=== PATIENT | female | born 1990 | race Caucasian/White ===

== ENCOUNTER → 2020-12-23 14:15 | Outpatient (BNVA) | payer MEDICAID, SELFPAY | PROVIDERS: Visit Provider Nurse Practitioner Women's Health | DX: N89.8 Other specified noninflammatory disorders of vagina (principal); F41.0 Panic disorder [episodic paroxysmal anxiety] | CPT/HCPCS: 87070; 87205; 87491; 87591; 87661 ==

== ENCOUNTER → 2021-02-01 14:31 | Outpatient (BNVA) | payer MEDICAID, SELFPAY | PROVIDERS: Visit Provider Psychiatry & Neurology Psychiatry | DX: F41.1 Generalized anxiety disorder (principal); F33.1 Major depressive disorder, recurrent, moderate | CPT/HCPCS: 99204 ==

== ENCOUNTER → 2021-03-02 08:14 | Outpatient (BNVA) | payer MEDICAID, SELFPAY | PROVIDERS: Visit Provider Psychiatry & Neurology Psychiatry | DX: F33.1 Major depressive disorder, recurrent, moderate (principal); F41.1 Generalized anxiety disorder | CPT/HCPCS: 99213 ==

== ENCOUNTER → 2021-07-06 14:10 | Outpatient (BNVA) | payer OTHER, SELFPAY | PROVIDERS: Visit Provider Psychiatry & Neurology Psychiatry | DX: F33.1 Major depressive disorder, recurrent, moderate (principal); F41.1 Generalized anxiety disorder; F41.0 Panic disorder [episodic paroxysmal anxiety] | CPT/HCPCS: 99214 ==

== ENCOUNTER → 2022-11-23 17:22 | Outpatient (BNVA) | payer MEDICAID, SELFPAY | PROVIDERS: PCP Family Medicine; Visit Provider Emergency Medicine | DX: N39.0 Urinary tract infection, site not specified (principal); R30.0 Dysuria | CPT/HCPCS: 81000; 87077; 87086; 87184; 87491; 87591; 87661 ==

== ENCOUNTER → 2023-01-01 08:30 | Outpatient (BNVA) | payer MEDICAID, SELFPAY | PROVIDERS: PCP Family Medicine; Visit Provider Family Medicine | DX: N39.0 Urinary tract infection, site not specified (principal); R39.9 Unspecified symptoms and signs involving the genitourinary system | CPT/HCPCS: 81003 ==

== ENCOUNTER → 2023-09-27 18:36 | Outpatient (BNVA) | payer MEDICAID, SELFPAY | PROVIDERS: PCP Family Medicine; Visit Provider Nurse Practitioner Family | DX: R05.9 Cough, unspecified (principal) | CPT/HCPCS: 87400; 87426 ==

== ENCOUNTER 2024-05-01 00:15 | Emergency (ER) | payer MEDICAID, SELFPAY ==
[2024-05-01 00:17] VITALS: RESP 14
[2024-05-01 00:33] VITALS: BP 110/75; PULSE 85; RESP 14; O2SAT 100
--- NOTE | 2024-05-01 00:53 | ED_ITS ---
HPI - Headache General: Chief Complaint: Headache Stated Complaint: Migraine Time Seen by Provider: 05/01/24 00:38 History of Present Illness: Patient presents to the ER with complaints of a migraine. This started about 6 hours ago. Patient has photophobia nausea vomiting. Patient tried taking 5 mg oxycodone, Advil and sumatriptan and she said this normally works but it did not work this time. This headache is typical of her normal migraine except just worse. Patient does have nausea vomiting. Patient did get cosmetic Botox in her forehead for the second time yesterday. Review of Systems General: Reports: 10 or more systems reviewed and unremarkable except in HPI and below PFSH ED PFSH: Medical History No pertinent past medical history neghx: htn,dm,thyroid,dvt/pe PCP: Dr. Reynolds Surgical History No pertinent past surgical history Family History Mother Thyroid disease Hypertension Grandmother Thyroid disease Maternal and Paternal Grandfather Diabetes Maternal Father Hypertension Denies family history of Colon cancer Ovarian cancer Heart disease Hypercholesteremia Breast cancer Uterine cancer Stroke Social History Smoking and tobacco/nicotine status: never used tobacco/nicotine Second hand smoke exposure: No Alcohol intake: never Substance/Drug Use: never Physical Exam Const: COMMON NORMALS: no acute distress, average body habitus, patient oriented x3, no limitations, healthy appearing, alert and well nourished HENMT: COMMON NORMALS: normocephalic, atraumatic, hearing grossly normal bilaterally, external ears normal, Normal external nose present and moist oral mucous membranes HEAD & SCALP: normocephalic and atraumatic NOSE: Normal external nose present EXTERNAL EAR: Yes external ears normal Eye: COMMON NORMALS: Equal, round and reactive pupils present, EOMs intact bilaterally, conjunctivae normal and no scleral icterus CONJUNCTIVA: Yes conjunctivae normal PUPIL: Yes Equal, round and reactive pupils present Neck/C-Spine: COMMON NORMALS: full ROM, no lymphadenopathy, supple, no meningeal signs, no JVD and Thyroid normal THYROID: Thyroid normal Chest: COMMONS NORMALS: normal inspection of the chest and normal palpation of entire chest wall Resp: COMMON NORMALS: normal respiratory effort, No retractions, No use of accessory muscles and clear to auscultation bilaterally AUSCULTATION: clear to auscultation bilaterally Cardio: COMMON NORMALS: no JVD, regular rate, regular rhythm, S1 normal heart sound present, S2 normal heart sound present, No gallops present (Cardio), No clicks present (Cardio), No murmurs present (Cardio) and No rub (Cardio) RATE: regular rate RHYTHM: regular rhythm HEART SOUNDS: S1 normal heart sound present and S2 normal heart sound present GI: COMMON NORMALS: Normal to inspection, nondistended, normoactive bowel sounds present, Soft to palpation, non-tender, No hepatosplenomegaly present and no masses PALPATION: Yes Soft to palpation and Yes No hepatosplenomegaly present Neuro: COMMON NORMALS: patient oriented x3 SENSORIUM/ORIENTATION: Yes alert MENINGEAL SIGNS: Yes no meningeal signs Course Vital Signs: Vital signs: Vital Signs Pulse Rate 77 05/01/24 02:00 Respiratory Rate 15 05/01/24 02:00 Blood Pressure 103/57 05/01/24 02:00 Pulse Oximetry 96 05/01/24 02:00 Oxygen Delivery Me thod Room Air 05/01/24 02:00 MDM - Headache Medical Decision Making Patient IV placed and was given 1 L normal saline, 10 mg Reglan, 30 mg Toradol, 50 mg Benadryl which resolved her headache. And her nausea. Patient is ready to go home. Patient be discharged home Differential Diagnosis Likely migraine Medical Records I reviewed the patient's medical records. Lab Data I reviewed the patient's lab results. All radiology interpretation(s) finalized by discharge Discharge Plan Discharge Patient Disposition: Home Clinical Impression: Migraine Qualifiers: Migraine type: unspecified Status migrainosus presence: without status migrainosus Intractability: not intractable Qualified Code(s): G43.909 - Migraine, unspecified, not intractable, without status migrainosus Condition: Stable Prescriptions: No Action venlafaxine [Effexor XR] 150 mg capsule,extended release 24hr 150 mg PO DAILY dextroamphetamine-amphetamine [Adderall] 5 mg tablet 5 mg PO DAILY prednisone 20 mg tablet 40 mg PO daily Qty: 10 0RF azithromycin 250 mg tablet See Rx Instructions PO .COMPLEX Qty: 6 0RF Rx Instructions: For 250 mg dose pack: take 500 mg today (day 1), then 250 mg for 4 days (days 2-5) PO Discharge Orders: Discharge ED (Routine); Ordered 05/01/24 Ordered By: Stanton Rodriguez Referrals: Edmar Mack MD [Primary Care Provider] - 1 week Patient Instructions: Headache - Migraine (Adult) Activity Restrictions/Additional Instructions: You are given Toradol, Reglan, Benadryl, and 1 L normal saline and your IV is a migraine cocktail. Please follow-up with your family practice physician for further evaluation and treatment as needed. Coding Level of Care Code ED Mattress Specialist for Rao Mcbride
[2024-05-01] MEDS: diphenhydrAMINE 50 mg/mL SDV 1mL IVP (01:36)
[2024-05-01] MEDS: ketorolac 30 mg/mL INJ IVP (01:36)
[2024-05-01] MEDS: sodium chloride 0.9% 1,000 ML 999 ML IV (01:36)
[2024-05-01] MEDS: metoclopramide 5 mg/mL SDV 2 mL 10 MG IVP (01:36)
[2024-05-01 02:00] VITALS: BP 103/57; PULSE 77; RESP 15; O2SAT 96
[2024-05-01 02:30] VITALS: BP 129/83; PULSE 82; RESP 16; O2SAT 97
== END 2024-05-01 02:50 | disposition home or self-care (01) ==
PROVIDERS: Emergency Provider Emergency Medicine; PCP Family Medicine
DX: G43.909 Migraine, unspecified, not intractable, without status migrainosus (principal); Z79.899 Other long term (current) drug therapy
CPT/HCPCS: 96361; 96374; 96375; 99284; J1200; J1885; J2765; J7030